=== PATIENT | female | born 1955 | race Caucasian/White ===

== ENCOUNTER → 2024-05-04 07:21 | Outpatient (REF) | payer MEDICARE, SELFPAY ==
[2024-05-04 08:51] LABS: Hematocrit 41.9 % (37.0-47.0); Hemoglobin 13.6 g/dL (12.0-16.0); Mean Corp Hgb Conc. 32.5 g/dL (33.0-37.0); Mean Corpuscular Hgb 28.2 pg (27.0-31.0); Mean Corpuscular Volume 86.7 fL (81.0-99.0); Mean Platelet Volume 10.3 fL (7.4-10.4); Platelet Count 212 10^3/uL (130-400); Red Blood Cell Count 4.83 10^6/uL (4.20-5.40); Red Cell Dist. Width 12.9 % (11.5-14.5); White Blood Cell Count 5.3 10^3/uL (4.8-10.8)
[2024-05-04 09:33] LABS: Blood Urea Nitrogen 20 mg/dl (7-17); Carbon Dioxide 28 mmol/L (22-30); Chloride 103 mmol/L (98-107); Glucose 92 mg/dl (70-99); Potassium 4.2 mmol/L (3.5-5.1); Sodium 137 mmol/L (135-145); eGFR > 60.00
== END ==
LOC: SDSPAT 07:21
PROVIDERS: ATTENDING PHYSICIAN Specialist; FAMILY PHYSICIAN Family Medicine
DX: Z01.818 Encounter for other preprocedural examination (principal)
CPT/HCPCS: 36415; 80048; 85027; 93005

== ENCOUNTER 2024-05-11 06:16 | Day surgery (SDC) | payer MEDICARE, SELFPAY ==
[2024-05-04 12:48] VITALS: BMI 29.6
--- NOTE | 2024-05-04 14:25 | PTCARENOTE ---
Abn ECG, Dr. Doyle notified, no additional instructions received.
[2024-05-11] VITALS (8 sets, daily range): BP systolic 106–160; BP diastolic 68–85; BMI 29.6
[2024-05-11] MEDS: Pyridium 200 MG PO (08:52)
[2024-05-11] MEDS: NORMOSOL-R/PLASMALYTE-A 1000 IV (08:58)
[2024-05-11] MEDS: SUBLIMAZE 25 MCG IV (11:11)
[2024-05-11] MEDS: LEVAQUIN 100 IV (11:24)
== END 2024-05-11 12:28 | disposition home or self-care (01) ==
LOC: SDS 06:16
PROVIDERS: ATTENDING PHYSICIAN Specialist; FAMILY PHYSICIAN Family Medicine
PROC: 0T778DZ Dilation of Left Ureter with Intraluminal Device, Via Natural or Artificial Opening Endoscopic (ICD-10-PCS; 2024-05-11)
PROC: 0TC18ZZ Extirpation of Matter from Left Kidney, Via Natural or Artificial Opening Endoscopic (ICD-10-PCS; 2024-05-11)
DX: N20.2 Calculus of kidney with calculus of ureter (principal)
CPT/HCPCS: 52356; 74018; 76000; 82365; C1894; C2617

== ENCOUNTER 2025-02-22 11:12 | Emergency (ER) | payer MEDICARE, SELFPAY ==
[2025-02-22 11:15] VITALS: BP 172/100
[2025-02-22 11:45] VITALS: BMI 29.0
--- NOTE | 2025-02-22 12:20 | ED.GENMED ---
History of Present Illness
General
Chief Complaint: Headache
Time Seen by Provider: 02/22/25 11:52
History of Present Illness
History of Present Illness:
Patient is a 69-year-old female with past medical history of chronic back pain here today for evaluation of approximately 3 days of a headache. Headache is described as moderate to severe at 8 out of 10 in severity. Headache is localized to the
back of the head and wraps around to the front. She also reports associated vomiting and nausea. She has thrown up 4 times in total. No dizziness. No visual changes. No numbness or tingling. No focal weakness. She did not take anything for
the pain she is not able to tolerate p.o.
Past History
Past History
ED Past Medical History: None
ED Past Surgical History: None
Review of Systems
Review of Systems
All Other Systems: ROS reviewed and negative except as documented in HPI and ROS
Phy Exam
Physical Exam
Physical Exam:
GENERAL: Alert , in no apparent distress
EYE: pupils equal and reactive
NECK: Supple
ENT: o/p clr, mmm.
CARDIAC: Regular rate and rhythm .
LUNGS: Clear breath sounds bilaterally, no acute respiratory distress, no wheezes/rales/rhonchi
NEUROLOGICAL: Alert and oriented, no focal neuro deficits, cranial nerves II through XII intact, normal sensation motor, moving all extremities
SKIN: Warm and dry, skin intact.
MUSCULOSKELETAL: No edema, well perfused.
PSYCH: Normal and appropriate interaction.
Course
Orders/Labs/Results
Orders:
Orders
02/22/25 12:23
0.9% Sodium Chloride 500 ml [Nss] 500 ml IV BOLUS
Acetaminophen [Tylenol] 1,000 mg PO NOW STA
Diphenhydramine [Benadryl] 50 mg IV NOW STA
Metoclopramide [Reglan] 10 mg IV NOW STA
02/22/25 12:24
CT Head & Neck Angio W/wo IV Urgent
Comment:
Reason For Exam: headache, vomiting, hypertensive
02/22/25 12:35
Basic Metabolic Panel Urgent
Complete Blood Count/With Diff Urgent
Abnormal Lab Results
02/22/25
12:35
Neutrophils % 75.6 H %
(42.2-75.2)
Lymphocytes % 17.9 L %
(20.5-51.1)
Creatinine 0.5 L mg/dL
(0.6-1.0)
02/22/25 12:35
02/22/25 12:35
Vital Signs
Initial and Last Documented VS:
Initial Vital Signs
Temp Pulse Resp BP Pulse Ox
97.7 F 74 17 172/100 99
02/22/25 11:15 02/22/25 11:15 02/22/25 11:15 02/22/25 11:15 02/22/25 11:15
Last Documented Vital Signs
Temp Pulse Resp BP Pulse Ox
97.7 F 74 17 159/85 97
02/22/25 11:15 02/22/25 11:15 02/22/25 11:15 02/22/25 14:00 02/22/25 14:15
MDM/Problems Addressed
Differential Diagnosis Includes:
Patient is a 69-year-old female with past medical history of chronic back pain here today for evaluation of approximately 3 days of a headache. Patient well-appearing. She is moderately hypertensive here. She is neurologically intact without any
neurodeficits appreciated. Will provide IV fluids. Will provide antiemetics and pain medication. Will obtain a CT head/neck with contrast.
02/22/2025 16:50: Screening labs grossly within normal limits. CTA head/neck without acute abnormalities. Patient reassessed with significant improvement in symptoms overall. Shortly after medication administration she did note mild itching of her
skin but this has since resolved. No current itching now. Symptoms/findings consistent with a benign migraine. Headache may also be secondary to elevation of blood pressure however this has since improved. Repeat blood pressure ~140s/80s. We
will discharge at this time with recommendations to closely follow-up with her doctor. We will prescribe Zofran to take as directed as needed as well as prescription ibuprofen. Recommend supportive measures. Return precautions given. All
questions answered. Stable for discharge.
*Pulse Oximetry
SaO2: 99
Oxygen Mode of Delivery: Room air
Patient hypoxic: no
*Critical Care Note
Total Time (30-74mins, 75-104mins- exclusive of procedures): Not Applicable
ED Attending Note
-
Portions of this chart may have been created with voice recognition software.� Occasional wrong word or��sound alike� substitutions may have occurred due to the inherent limitations of voice recognition software.
Discharge Plan
Departure
Patient Disposition: Home (Routine Discharge)
Date of Disposition: 02/22/25
Time of Disposition: 16:38
Patient with high blood pressure during this ER visit?: Yes
Condition: Good
Discharge Problem:
Headache
Instructions: Headache, Adult (DC), BLOOD PRESSURE
Prescriptions:
New
ibuprofen 600 mg tablet
600 mg PO Q6H PRN (Reason: Pain) 5 Days Qty: 20 0RF
Rx Instructions:
Take with food
ondansetron 4 mg tablet,disintegrating
4 mg PO Q6H PRN (Reason: nausea and vomiting) 2 Days Qty: 8 0RF
No Action
cyanocobalamin (vitamin B-12) [Vitamin B-12] 1,000 mcg Tablet
1,000 mcg PO DAILY
vitamin D3-vitamin K2 250 mcg (10,000 unit)-45 mcg Capsule
1 cap PO DAILY
d-mannose 500 mg Capsule
500 mg PO DAILY
magnesium glycinate 100 mg magnesium Capsule
600 mg PO HS
biotin
1 tab PO DAILY
Referrals:
Santana Mckeon DO [Family Provider, Family Practice] - Follow up in 2-3 days
Activity Restrictions/Additional Instructions:
Begin the antinausea medication and pain medication as directed.
Follow-up with your doctor within the next 2-3 days.
Return for any new, worsening, or concerning symptoms.
Interventions
Interventions:
*Risk Screen - Suicide Last Done: 02/22/25 11:16
*General Assessment Last Done: 02/22/25 11:16
*Neglect/Abuse Screening Last Done: 02/22/25 11:16
*ED COVID-19 Vaccine History Last Done: 02/22/25 11:16
*ED Influenza Vaccine History Last Done: 02/22/25 11:16
[facility] Fall Risk Assessment Tool Last Done: 02/22/25 11:45
*Nursing Disposition Last Done: 02/22/25 16:51
ED- Neurological Assessment Last Done: 02/22/25 11:45
Discharge Date and Time
Print Language: [id number]
[2025-02-22] MEDS: NSS 500 IV (12:44)
[2025-02-22 12:45] LABS: Hematocrit 43.1 % (37.0-47.0); Hemoglobin 14.3 g/dL (12.0-16.0); Mean Corp Hgb Conc. 33.2 g/dL (33.0-37.0); Mean Corpuscular Volume 85.3 fL (81.0-99.0); Nucleated Red Blood Cells % 0 %; Platelet Count 207 10^3/uL (130-400); Red Cell Dist. Width 13.0 % (11.5-14.5)
[2025-02-22] MEDS: REGLAN 10 MG IV (12:45)
[2025-02-22] MEDS: TYLENOL 1000 MG PO (12:45)
[2025-02-22] MEDS: BENADRYL 50 MG IV (12:45)
[2025-02-22 12:58] LABS: Blood Urea Nitrogen 12 mg/dl (7-17); Calcium 9.4 mg/dl (8.4-10.2); Carbon Dioxide 28 mmol/L (22-30); Chloride 105 mmol/L (98-107); Glucose 98 mg/dl (70-99); Potassium 3.9 mmol/L (3.5-5.1); Sodium 137 mmol/L (135-145); eGFR > 60.00
[2025-02-22 14:00] VITALS: BP 159/85
== END 2025-02-22 16:52 | disposition home or self-care (01) ==
LOC: EMR 11:12
PROVIDERS: Physician Assistant; EMERGENCY PHYSICIAN Emergency Medicine; FAMILY PHYSICIAN Anesthesiology
DX: R51.9 Headache, unspecified (principal)
CPT/HCPCS: 99284; 96374; 96375; 96361; 70496; 70498; 80048; 85025; Q9967